=== PATIENT | female | born 1945 | race Caucasian/White ===

== ENCOUNTER 2020-08-19 21:28 | Emergency (ER) | payer OTHER ==
[~2020-08-19] VITALS: Ht 139.7 cm; Wt 68.9 kg
[~2020-08-19 21:28] MED LIST: ACET-2743 PO; AMLO-258 PO; Aspirin PO; CELE200 PO; CHOL200074 PO; GABA-531 PO; HYDR-4060 PO; IRBE150T24 PO; OXYC5 PO; PANT40TA54 PO; PRAV10TA39 PO
[2020-08-19] MEDS ORDERED: ACETAMINOPHEN 325 MG TAB PO ONE (22:30)
[2020-08-19] MEDS ORDERED: DEXAMETHASONE SOD PHOSPHATE 4 MG/ML 1ML VIAL IM SCH (22:30)
== END 2020-08-19 23:26 | disposition home or self-care (01) ==
LOC: EDH 21:28
DX: J02.9 Acute pharyngitis, unspecified (principal); R09.81 Nasal congestion; I10 Essential (primary) hypertension; E78.5 Hyperlipidemia, unspecified; Z79.899 Other long term (current) drug therapy; Z79.1 Long term (current) use of non-steroidal anti-inflammatories (NSAID); Z98.890 Other specified postprocedural states; Z79.82 Long term (current) use of aspirin
CPT/HCPCS: 87880; 96372; 99283; J1100